=== PATIENT | male | born 1980 | race Caucasian/White ===

== ENCOUNTER 2024-01-27 12:28 | Emergency (ER) | payer OTHER, SELFPAY ==
[2024-01-27 12:39] VITALS: BP 139/94; PULSE 80; RESP 18; TEMP 36.4; O2SAT 97
--- NOTE | 2024-01-27 12:48 | ED.GENADULT ---
HPI - General Adult General Chief complaint: Fall/Minor Trauma Stated complaint: Fell off ladder- back hurt - work comp Time Seen by Provider: 01/27/24 12:34 History of Present Illness HPI narrative: Patient was cleaning/ fixing ductwork at work when the ladder slipped out from under him, and he fell backwards on his low back . Reports mild pain to low back. No head/ neck injury. ~4 ' high on ladder per patient. Denies any medications currently, but finished a medication 1 week ago after cardiac surgery per patient. 43-year-old man presenting to the emergency department concern of low back pain following a fall from a ladder at work. He does have a video taken from surveillance cameras showing this accident. Was reaching up overhead a few feet up a step ladder when the step ladder slipped out from under him and landed awkwardly and hard on appears to be both feet. Subsequently walks away holding his low back. He continues to have pain in the low back not radiating. There was no injury to head or neck. Otherwise had recent cardiac procedure and was discontinued on presumably anticoagulation? about a week ago. Related Data Previous Rx's ?Medication ?Instructions ?Recorded cyclobenzaprine 10 mg tablet 10 mg PO QID PRN muscle spasm #15 01/27/24 tabs Allergies Allergy/AdvReac Type Severity Reaction Status Date / Time No Known Drug Allergies Allergy Verified 01/27/24 12:39 Review of Systems Status of ROS: Reports: 6 or more systems reviewed and unremarkable except as noted in History and below PFSH PFS Social History Smoking Status: Unknown if ever smoked Exam Narrative: Exam Narrative: Pleasant. NAD lying in bed. Clearly painful though to go to a seated position. Negative straight leg raise bilaterally. Has good strength in lower extremities. No apparent sensory losses. Abdomen is soft and nontender. He has no increased discomfort anterior compression of the iliac crests and favors is negative. Palpation of the back does not clearly elicit pain. Seems to be little sore about the left SI joint but pain is reported deep to palpation in the mid lumbar spine. No swelling or erythema. Const: Vital Signs, click to edit/add: Vital Signs - 24 hr 01/27/24 12:39 Temperature 97.6 F Pulse Rate [Pulse Oximeter] 80 Respiratory Rate 18 Blood Pressure [Ri ght Upper Arm] 139/94 H Pulse Oximetry 97 Oxygen Delivery Me thod Room Air Documenting provider has reviewed patient's vital signs: yes Course Vital Signs Vital signs: Initial Vital Signs Temperature 97.6 F 01/27/24 12:39 Temperature Source Temporal Artery Scan 01/27/24 12:39 Pulse Rate 80 01/27/24 12:39 Respiratory Rate 18 01/27/24 12:39 Blood Pressure 139/94 H 01/27/24 12:39 Blood Pressure Mean 109 H 01/27/24 12:39 Blood Pressure Position Sitting 01/27/24 12:39 Pulse Oximetry 97 01/27/24 12:39 Oxygen Delivery Method Room Air 01/27/24 12:39 Vital Signs Temperature 97.6 F 01/27/24 12:39 Pulse Rate 80 01/27/24 12:39 Respiratory Rate 18 01/27/24 12:39 Blood Pressure 139/94 H 01/27/24 12:39 Pulse Oximetry 97 01/27/24 12:39 Oxygen Delivery Method Room Air 01/27/24 12:39 Temperature 97.6 F 01/27/24 12:39 Pulse Rate 80 01/27/24 12:39 Respiratory Rate 18 01/27/24 12:39 Blood Pressure 139/94 H 01/27/24 12:39 Pulse Oximetry 97 01/27/24 12:39 Oxygen Delivery Method Room Air 01/27/24 12:39 Medical Decision Making MDM Narrative Medical decision making narrative: He denies that he needs any pain medication or ice pack at this time. No nausea noted. Given the type of trauma particularly if there were radicular symptoms would consider MRI but at this point would offer basic lumbar spine x-ray for potential fracture or assessment in particular of interspace disease if there might have been some this protrusion. Otherwise would appear that he has sustained a low back strain. Pending imaging, anticipating discharge with stretches for the low back and brief course of restrictions at work. Ibuprofen and acetaminophen. Two-view lumbar spine reviewed by me looks to be WNL. Maintained joint spaces. On re-evaluation Mr. Almanzar does report feeling a little better. Have discussed findings with him. Radiology over-read now returns with over-read as below Procedure(s): XR lumbar spine 2-3V Accession Number(s): [id number] cc: Provider,Not a Local; Evelyn,Royal M.D.~ For Patients: As a result of the 21st Century Cures Act, medical imaging exams and procedure reports are released immediately into your electronic medical record. You may view this report before your referring provider. If you have questions, please contact your health care provider. INDICATION: Fell off ladder at work. TECHNIQUE: Two views lumbosacral spine supine and crosstable lateral. FINDINGS: No acute fracture or dislocation. No evidence of spondylolysis or spondylolisthesis. The intervertebral disc spaces are well preserved and fail to reveal any abnormalities. IMPRESSION: Negative radiographic examination lumbosacral spine. See patient discharge plan for further discussion Provided work note for remainder of day. Is off the remainder of the week Discharge Plan Discharge Clinical Impression: Back strain Patient Disposition: Home, Self-Care Condition: Improved Additional Instructions: I will call you if Radiology sees anything more on your imaging. Take this disc of images with you in case follow-up is needed. Can take up to 800 mg of ibuprofen or up to 1000 mg of acetaminophen per dose. These can be combined as well. Instead of ibuprofen could take up to 500 mg of naproxen 2 times daily. I would consider icing your low back a couple of times daily over the next few days. I think the stretches might be beneficial; consider doing them once or twice daily over the next few weeks. Follow-up/return/be seen for uncontrolled pain, symptoms radiating down your legs. I have also sent in a prescription for a ?muscle relaxer? , Flexeril/cyclobenzaprine, to the pharmacy if you would like. Lo llamar? si Radiolog?a ve algo m?s en sara im?genes. Lleve isreal disco de im?genes con usted en filomena de que sea necesario realizar un seguimiento. Puede holly hasta 800 mg de ibuprofeno o hasta 1000 mg de paracetamol por dosis. Estos tambi?n se pueden combinar. En lugar de ibuprofeno se podr?an holly hasta 500 mg de naproxeno 2 veces al d?a. Considerar?a ponerte hielo en la espalda baja un par de veces al d?a dimitris los pr?ximos d?as. Creo que los estiramientos podr?an resultar beneficiosos; Considere hacerlo janine o dos veces al d?a dimitris las pr?ximas semanas. Seguimiento/regreso/ser atendido por dolor incontrolado, s?ntomas que se irradian hacia las piernas. Tambi?n envi? janine receta para un relajante muscular, Flexeril/ciclobenzaprina, a la farmacia si lo desea. Prescriptions: New cyclobenzaprine 10 mg tablet 10 mg PO QID PRN (Reason: muscle spasm) Qty: 15 0RF Follow Up/Referrals: Provider,Not a Local [Primary Care Provider] - Stand Alone Forms: MyHealth Info Instructions
--- NOTE | 2024-01-27 13:00 | CRLHL7_ITS ---
For Patients: As a result of the Century Cures Act, medical imaging exams and procedure reports are released immediately into your electronic medical record. You may view this report before your referring provider. If you have questions, please contact your health care provider. INDICATION: Fell off ladder at work. TECHNIQUE: Two views lumbosacral spine supine and crosstable lateral. FINDINGS: No acute fracture or dislocation. No evidence of spondylolysis or spondylolisthesis. The intervertebral disc spaces are well preserved and fail to reveal any abnormalities. IMPRESSION: Negative radiographic examination lumbosacral spine. Dictated by Rick Heller MD @ 01/27/2024 2:08:09 PM (Electronically Signed)
[2024-01-27 13:48] VITALS: PULSE 71; O2SAT 97
[2024-01-27 14:00] VITALS: PULSE 71; O2SAT 97
[2024-01-27 14:01] VITALS: BP 124/85; PULSE 71; RESP 18; O2SAT 97
[2024-01-27 14:15] VITALS: PULSE 71; O2SAT 97
== END 2024-01-27 14:26 | disposition home or self-care (01) ==
PROVIDERS: Emergency Provider Family Medicine
DX: S39.012A Strain of muscle, fascia and tendon of lower back, initial encounter (principal); W11.XXXA Fall on and from ladder, initial encounter; Y99.0 Civilian activity done for income or pay
CPT/HCPCS: 72100; 99283; 99284

== ENCOUNTER 2024-09-23 08:40 | Outpatient (CLI) | payer OTHER, SELFPAY | END 2024-09-23 08:41 | disposition home or self-care (01) | PROVIDERS: Visit Provider Registered Nurse | DX: Z13.6 Encounter for screening for cardiovascular disorders (principal); Z13.9 Encounter for screening, unspecified | CPT/HCPCS: 80053; 80061 ==

== ENCOUNTER 2024-10-20 07:43 | Outpatient (CLI) | payer OTHER, SELFPAY ==
--- NOTE | 2024-10-20 09:20 | W.ANESCHARGE ---
Anesthesia Charges Start Date/Time Anesthesia Start Date: 10/20/24 Anesthesia Start Time: 08:53 Stop Date/Time Anesthesia Stop Date: 10/20/24 Anesthesia Stop Time: 09:18 Coding CPT Codes CPT Codes: GEORGINA LWR INTST NDSC NOS - 91774 ([id number]) P2 - PATIENT W/MILD SYST DISEASE, QX - OXYGEN THERAPIST SVC W/ MD MED DIRECTION, QK - STEWARD/STEWARDESS ECONOMY CLASS 2-4 CNCRNT ANES PROC
--- NOTE | 2024-10-20 10:12 | W.ANESCHARGE ---
Anesthesia Charges Start Date/Time Anesthesia Start Date: 10/20/24 Anesthesia Start Time: 08:53 Stop Date/Time Anesthesia Stop Date: 10/20/24 Anesthesia Stop Time: 09:18 Coding CPT Codes CPT Codes: ANES LWR INTST NDSC NOS - 61520 ([id number]) P2 - PATIENT W/MILD SYST DISEASE, QK - SPECIAL EVENT ASSISTANT 2-4 CNCRNT ANES PROC, QX - COILER OPERATOR SVC W/ MD MED DIRECTION
== END 2024-10-20 07:44 | disposition home or self-care (01) ==
LOC: OP CLINIC 07:43
PROVIDERS: Visit Provider Surgery
DX: Z12.11 Encounter for screening for malignant neoplasm of colon (principal); D12.7 Benign neoplasm of rectosigmoid junction
CPT/HCPCS: 00811; 45385; 88305; T1013; J2704

== ENCOUNTER 2024-12-23 09:05 | Outpatient (CLI) | payer OTHER, SELFPAY | END 2024-12-23 09:06 | disposition home or self-care (01) | LOC: NFLDREF 09:05 | PROVIDERS: PCP Registered Nurse; Visit Provider Registered Nurse | DX: B35.1 Tinea unguium (principal) | CPT/HCPCS: 80053 ==